=== PATIENT | male | born 1975 | race Caucasian/White ===

== ENCOUNTER 2017-10-12 19:33 | Emergency (ER) | payer BC ==
[~2017-10-12] VITALS: Ht 180.3 cm; Wt 127.0 kg
[~2017-10-12 19:33] MED LIST: NORCO 5-325 TA1 EACH PO
--- NOTE | 2017-10-13 18:03 | EKG ---
[facility] [address] [place], [place] [address] Signed Normal sinus rhythm Incomplete right bundle branch block Borderline ECG No previous ECGs available Confirmed by EARLENE GIRALDO MD ([id number] on 10/13/2017 6:03:27 PM Electronically Signed By: EARLENE GIRALDO MD 10/13/17 180 PATIENT NAME: JOSE JEAN Electrocardiogram DATE OF : 71 PHYSICIAN: EARLENE GIRALDO MD REPORT #: [id number] REPORT IS CONFIDENTIAL AND NOT TO BE RELEASED WITHOUT AUTHORIZATION
== END 2017-10-12 22:01 | disposition home or self-care (01) ==
LOC: ED 19:33
DX: I49.3 Ventricular premature depolarization (principal)
CPT/HCPCS: 80053; 82550; 82553; 83874; 84484; 85025; 85610; 85730; 93005; 93010; 99284

== ENCOUNTER 2017-10-15 19:12 | Emergency (ER) | payer BC ==
[~2017-10-15] VITALS: Ht 180.3 cm; Wt 125.6 kg
--- NOTE | 2017-10-16 07:27 | EKG ---
[facility] [address] [place], [place] [address] Signed Normal sinus rhythm Normal ECG When compared with ECG of 12-OCT-2017 19:39, No significant change was found Confirmed by GARRISON MONTALVO MD ([id number] on 10/16/2017 7:27:45 AM Electronically Signed By: GARRISON MONTALVO MD 10/16/17 0727 PATIENT NAME: MIRANDAJOSE ESPERANZA Electrocardiogram DATE OF : 71 PHYSICIAN: GARRISON MONTALVO MD REPORT #: [id number] REPORT IS CONFIDENTIAL AND NOT TO BE RELEASED WITHOUT AUTHORIZATION
== END 2017-10-15 21:43 | disposition home or self-care (01) ==
LOC: ED 19:12
DX: R07.2 Precordial pain (principal); R10.11 Right upper quadrant pain
CPT/HCPCS: 71010; 80053; 84484; 85025; 93005; 93010; 99284